=== PATIENT | male | born 1965 | race African-American/Black ===

== ENCOUNTER 2017-09-13 18:32 | Emergency (ER) | payer MEDICAID ==
[2017-09-13] MEDS: Ondansetron 4 MG/2 ML SDV IVPUSH ONE ×2 (19:00→20:35)
--- NOTE | 2017-09-13 19:10 | EDM.PDOC ---
ED HPI GENERAL MEDICAL PROBLEM - General Chief Complaint: General Stated Complaint: CHEST PAIN Time Seen by Provider: 09/13/17 18:35 Source of Information: Reports: Patient, Police History Limitations: Reports: No Limitations - History of Present Illness INITIAL COMMENTS - FREE TEXT/NARRATIVE: Pt was brought in by chief operations officer, as patient has been incarcerated by violating warrant. Pt was incarcerated . According to police, he has not been eating for past 2 days. According to patient he has been vomiting for past 2 days and not able to keep anything in the stomach. But since 12 noon today he has been having bloody vomitus. he did vomit twice here in the emergency room which is bloody and bilious and the gastro-occult is positive for blood.no abdominal pain or chills. Pt claims he has been having chest pain over the lower chest since today morning, pain is constant 8/10 with radiation into his neck and his throat hurts. No shortness of breath or wheezing.No fever or chills. c/o feeling weak.Pt's PCP is from [facility]. 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 Last time he smoked heroine was on . Location: Reports: Chest Quality: Reports: Ache Severity: Moderate Improves with: Reports: None Worsens with: Reports: None Associated Symptoms: Reports: Nausea/Vomiting. Denies: Confusion, Chest Pain, Cough, Diaphoresis, Fever/Chills, Headaches, Loss of Appetite, Rash, Seizure, Shortness of Breath, Syncope, Weakness - Related Data Allergies Allergy/AdvReac Type Severity Reaction Status Date / Time codeine Allergy Hives Verified 09/13/17 19:13 ketorolac tromethamine Allergy Hives Verified 09/13/17 19:13 [From Toradol] Home Meds: Home Meds metFORMIN [Glucophage] 500 mg PO BIDMEALS 09/13/17 [History] Past Medical History Endocrine/Metabolic History: Reports: Other (See Below) Other Endocrine/Metabolic History: Diabetes, Unspecified Social & Family History - Family History Family Medical History: Noncontributory ED ROS GENERAL - Review of Systems Review Of Systems: See Below Constitutional: Reports: Malaise, Weakness. Denies: Fever, Chills HEENT: Reports: Throat Pain. Denies: Rhinitis, Sinus Problem, Throat Swelling Respiratory: Reports: Cough, Sputum. Denies: Shortness of Breath, Wheezing Cardiovascular: Reports: Chest Pain, Lightheadedness Endocrine: Denies: Fatigue GI/Abdominal: Reports: Abdominal Pain, Hematemesis, Nausea, Vomiting. Denies: Constipation, Diarrhea : Denies: Urgency, Urinary Retention Musculoskeletal: Denies: Joint Pain, Joint Swelling Skin: Denies: Bruising, Pruritis ED EXAM, GENERAL - Physical Exam Exam: See Below Exam Limited By: No Limitations General Appearance: Alert, WD/WN, Anxious, Mild Distress Eye Exam: Bilateral Eye: EOMI, PERRL Ears: Normal External Exam, Normal Canal, Hearing Grossly Normal, Normal TMs Ear Exam: Bilateral Ear: Auricle Normal, Canal Normal, TM normal Nose: Normal Inspection, Normal Mucosa, No Blood Throat/Mouth: Normal Inspection, Normal Lips, Normal Teeth, Normal Gums, Normal Oropharynx, Normal Voice, No Airway Compromise Head: Atraumatic, Normocephalic Neck: Normal Inspection, Supple, Non-Tender, Full Range of Motion Respiratory/Chest: No Respiratory Distress, Lungs Clear, Normal Breath Sounds, No Accessory Muscle Use, Chest Non-Tender Cardiovascular: Normal Peripheral Pulses, Regular Rate, Rhythm, No Edema, No Gallop, No JVD, No Murmur, No Rub GI/Abdominal: Normal Bowel Sounds, Soft, No Organomegaly, No Distention, No Abnormal Bruit, Tender (epigastrium) Extremities: Normal Inspection, Normal Range of Motion, Non-Tender, Normal Capillary Refill, No Pedal Edema Neurological: Alert, Oriented Psychiatric: Normal Affect, Normal Mood EKG INTERPRETATION EKG Date: 09/13/17 Rhythm: NSR Ursa: Normal P-Wave: Present QRS: Normal ST-T: Normal QT: Normal EKG Interpretation Comments: Prolonged QT interval Course - Vital Signs Text/Narrative:: Pt has been c/o precardial chest pain since today morning and pain in his throat. His EKG is normal. He has been placed on Nasal cannula oxygen at 2 litres. Pt has vomited twice in the emergency room and the vomitus is bloody and gastroccult positive. he did receive S/l zofran 4mg and once IV access was available he did receive Zofran 40mg IV. Pt's vomiting has settled down some, He has epigastric tenderness possible from wretching. Pt did receive NS IV bolus of 500cc followed by 125cc/hr. Also He has received IV protonix 40mg . Apparently pt was resting and woke up with sudden onset on bloody vomitus around 8:30 Pm, and vomited about 150cc of watery bloody vomitus. He did receive another dose of Zofran 4mg IV. C/o his throat hurting, his posterior pharynx appears normal, might be from his wretching, hence did give him Lidocaine Viscus 15cc to help the the upper pharynx pain and discomfort. Apparently now I have his CT abdomen report, which does show thick walled distal esophagus indicative of esophagitis. With patient having bloody vomitus it is hard to say if he has erosive esophagitis causing this bleed or has torn the esophageal vein from his episodes of vomiting for past 2 days. Pt's urine drug screen is positive for Opiods, methamphetamine and marijuana. I did call [facility], and discuss patient's condition with Dr. Guerrero, Hospitalist plumbing contractor. He did recommend another 40mg of protonix IV and one dose of reglan 10mg IV. He does agree to accept patient. Pt has received second dose of protonix and reglan. I have discussed the transfer with patient and the lawnmower mechanic. Apparently for the transfer , the [facility] the [facility] Judge, has furloughed patient to go to [facility] for treatment. On patient's discharge the [facility] has to contact [facility] law enforcement office dispatch to cotton picker patient. the [facility] law enforcement dispatch number is [phone]. Pt is hemodynamically stable. On IV fluids. Pt will be transferred by [facility] to [facility] . Further care as per Cesar Velazquez. Last Recorded V/S: Last Vital Signs Temp 98.2 F 09/13/17 19:06 Pulse 107 H 09/13/17 19:06 Resp 26 H 09/13/17 19:06 BP 131/86 09/13/17 19:06 Pulse Ox 100 09/13/17 19:06 - Orders/Labs/Meds Labs: Laboratory Tests 09/13/17 09/13/17 09/13/17 Range/Units 18:07 19:10 19:10 WBC 6.1 (4.0-11.0) K/uL RBC 5.70 (4.50-6.50) M/uL Hgb 16.6 (13.0-18.0) g/dL Hct 45.5 (40.0-54.0) % MCV 80 (76-96) fL MCH 29.1 (27.0-32.0) pg MCHC 36.5 H (31.0-35.0) g/dL RDW 11.9 (11.0-16.0) % Plt Count 195 (150-400) K/uL MPV 11.1 H (6.0-10.0) fL Neut % (Auto) 74.9 H (45.0-70.0) % Lymph % (Auto) 19.3 L (20.0-40.0) % Foster % (Auto) 5.4 (3.0-10.0) % Eos % (Auto) 0.2 L (1.0-5.0) % Baso % (Auto) 0.2 (0.0-0.5) % Neut # (Auto) 4.57 (2.00-7.50) K/uL Lymph # (Auto) 1.18 L (1.50-4.00) K/uL Foster # (Auto) 0.33 (0.20-0.80) K/uL Eos # (Auto) 0.01 L (0.04-0.40) K/uL Baso # (Auto) 0.01 L (0.02-0.10) K/uL PT (9.0-11.5) sec INR (1.0-3.5) Sodium 135 L (136-145) mmol/L Potassium 4.0 (3.5-5.1) mmol/L Chloride 94 L (98-107) mmol/L Carbon Dioxide 30.6 (21.0-32.0) mmol/L Anion Gap 14.4 (5.0-15.0) mmol/L BUN 15 (8-26) mg/dL Creatinine 1.07 (0.70-1.30) mg/dL Est Cr Clr Drug Dosing 75.50 mL/min Estimated GFR (MDRD) > 60 (>60) MLS/MIN BUN/Creatinine Ratio 14.0 (6-25) Glucose 307 H (74-100) mg/dL POC Glucose 293 H (74-110) mg/dL Hemoglobin A1c (4.5-6.2) % Calcium 10.2 H (8.5-10.1) mg/dL Total Bilirubin 1.3 H (0.0-1.0) mg/dL AST 10 L (15-37) U/L ALT 25 (12-78) U/L Alkaline Phosphatase 94 (46-116) U/L Troponin I < 0.017 (0.000-0.060) ng/mL Total Protein 8.1 (6.4-8.2) g/dL Albumin 4.2 (3.4-5.0) g/dL Globulin 3.9 (2.2-4.2) g/dL Albumin/Globulin Ratio 1.1 (0.8-2.0) Amylase 92 (25-115) U/L Lipase 66 L (73-393) U/L Urine Color Urine Appearance (CLEAR) Urine pH (5.0-8.0) Ur Specific Nadeau (1.003-1.030) Urine Protein (NEGATIVE) mg/dL Urine Glucose (UA) (NEGATIVE) mg/dL Urine Ketones (NEGATIVE) mg/dL Urine Occult Blood (NEGATIVE) Urine Nitrite (NEGATIVE) Urine Bilirubin (NEGATIVE) Urine Urobilinogen (0.2-1.0) E.U./dL Ur Leukocyte Esterase (NEGATIVE) Urine RBC /HPF Urine WBC /HPF Urine Opiates Screen (NEGATIVE) Ur Oxycodone Screen (NEGATIVE) Urine Methadone Screen (NEGATIVE) U Acetaminophen Screen (NEGATIVE) Ur Barbiturates Screen (NEGATIVE) Ur Tricyclics Screen (NEGATIVE) Ur Phencyclidine Scrn (NEGATIVE) Ur Amphetamine Screen (NEGATIVE) U Methamphetamines Scrn (NEGATIVE) U Benzodiazepines Scrn (NEGATIVE) U Cocaine Metab Screen (NEGATIVE) U Marijuana (THC) Screen (NEGATIVE) 09/13/17 09/13/17 09/13/17 Range/Units 19:10 19:10 20:06 WBC (4.0-11.0) K/uL RBC (4.50-6.50) M/uL Hgb (13.0-18.0) g/dL Hct (40.0-54.0) % MCV (76-96) fL MCH (27.0-32.0) pg MCHC (31.0-35.0) g/dL RDW (11.0-16.0) % Plt Count (150-400) K/uL MPV (6.0-10.0) fL Neut % (Auto) (45.0-70.0) % Lymph % (Auto) (20.0-40.0) % Foster % (Auto) (3.0-10.0) % Eos % (Auto) (1.0-5.0) % Baso % (Auto) (0.0-0.5) % Neut # (Auto) (2.00-7.50) K/uL Lymph # (Auto) (1.50-4.00) K/uL Foster # (Auto) (0.20-0.80) K/uL Eos # (Auto) (0.04-0.40) K/uL Baso # (Auto) (0.02-0.10) K/uL PT 9.2 (9.0-11.5) sec INR 0.9 L (1.0-3.5) Sodium (136-145) mmol/L Potassium (3.5-5.1) mmol/L Chloride (98-107) mmol/L Carbon Dioxide (21.0-32.0) mmol/L Anion Gap (5.0-15.0) mmol/L BUN (8-26) mg/dL Creatinine (0.70-1.30) mg/dL Est Cr Clr Drug Dosing mL/min Estimated GFR (MDRD) (>60) MLS/MIN BUN/Creatinine Ratio (6-25) Glucose (74-100) mg/dL POC Glucose (74-110) mg/dL Hemoglobin A1c 8.7 H (4.5-6.2) % Calcium (8.5-10.1) mg/dL Total Bilirubin (0.0-1.0) mg/dL AST (15-37) U/L ALT (12-78) U/L Alkaline Phosphatase (46-116) U/L Troponin I (0.000-0.060) ng/mL Total Protein (6.4-8.2) g/dL Albumin (3.4-5.0) g/dL Globulin (2.2-4.2) g/dL Albumin/Globulin Ratio (0.8-2.0) Amylase (25-115) U/L Lipase (73-393) U/L Urine Color Yellow Urine Appearance Clear (CLEAR) Urine pH 6.0 (5.0-8.0) Ur Specific Nadeau 1.025 (1.003-1.030) Urine Protein 100 H (NEGATIVE) mg/dL Urine Glucose (UA) 500 H (NEGATIVE) mg/dL Urine Ketones >=160 H (NEGATIVE) mg/dL Urine Occult Blood Negative (NEGATIVE) Urine Nitrite Negative (NEGATIVE) Urine Bilirubin Small H (NEGATIVE) Urine Urobilinogen 0.2 (0.2-1.0) E.U./dL Ur Leukocyte Esterase Negative (NEGATIVE) Urine RBC Not seen /HPF Urine WBC Not seen /HPF Urine Opiates Screen (NEGATIVE) Ur Oxycodone Screen (NEGATIVE) Urine Methadone Screen (NEGATIVE) U Acetaminophen Screen (NEGATIVE) Ur Barbiturates Screen (NEGATIVE) Ur Tricyclics Screen (NEGATIVE) Ur Phencyclidine Scrn (NEGATIVE) Ur Amphetamine Screen (NEGATIVE) U Methamphetamines Scrn (NEGATIVE) U Benzodiazepines Scrn (NEGATIVE) U Cocaine Metab Screen (NEGATIVE) U Marijuana (THC) Screen (NEGATIVE) 09/13/17 Range/Units 20:07 WBC (4.0-11.0) K/uL RBC (4.50-6.50) M/uL Hgb (13.0-18.0) g/dL Hct (40.0-54.0) % MCV (76-96) fL MCH (27.0-32.0) pg MCHC (31.0-35.0) g/dL RDW (11.0-16.0) % Plt Count (150-400) K/uL MPV (6.0-10.0) fL Neut % (Auto) (45.0-70.0) % Lymph % (Auto) (20.0-40.0) % Foster % (Auto) (3.0-10.0) % Eos % (Auto) (1.0-5.0) % Baso % (Auto) (0.0-0.5) % Neut # (Auto) (2.00-7.50) K/uL Lymph # (Auto) (1.50-4.00) K/uL Foster # (Auto) (0.20-0.80) K/uL Eos # (Auto) (0.04-0.40) K/uL Baso # (Auto) (0.02-0.10) K/uL PT (9.0-11.5) sec INR (1.0-3.5) Sodium (136-145) mmol/L Potassium (3.5-5.1) mmol/L Chloride (98-107) mmol/L Carbon Dioxide (21.0-32.0) mmol/L Anion Gap (5.0-15.0) mmol/L BUN (8-26) mg/dL Creatinine (0.70-1.30) mg/dL Est Cr Clr Drug Dosing mL/min Estimated GFR (MDRD) (>60) MLS/MIN BUN/Creatinine Ratio (6-25) Glucose (74-100) mg/dL POC Glucose (74-110) mg/dL Hemoglobin A1c (4.5-6.2) % Calcium (8.5-10.1) mg/dL Total Bilirubin (0.0-1.0) mg/dL AST (15-37) U/L ALT (12-78) U/L Alkaline Phosphatase (46-116) U/L Troponin I (0.000-0.060) ng/mL Total Protein (6.4-8.2) g/dL Albumin (3.4-5.0) g/dL Globulin (2.2-4.2) g/dL Albumin/Globulin Ratio (0.8-2.0) Amylase (25-115) U/L Lipase (73-393) U/L Urine Color Urine Appearance (CLEAR) Urine pH (5.0-8.0) Ur Specific Nadeau (1.003-1.030) Urine Protein (NEGATIVE) mg/dL Urine Glucose (UA) (NEGATIVE) mg/dL Urine Ketones (NEGATIVE) mg/dL Urine Occult Blood (NEGATIVE) Urine Nitrite (NEGATIVE) Urine Bilirubin (NEGATIVE) Urine Urobilinogen (0.2-1.0) E.U./dL Ur Leukocyte Esterase (NEGATIVE) Urine RBC /HPF Urine WBC /HPF Urine Opiates Screen Positive H (NEGATIVE) Ur Oxycodone Screen Negative (NEGATIVE) Urine Methadone Screen Negative (NEGATIVE) U Acetaminophen Screen Negative (NEGATIVE) Ur Barbiturates Screen Negative (NEGATIVE) Ur Tricyclics Screen Negative (NEGATIVE) Ur Phencyclidine Scrn Negative (NEGATIVE) Ur Amphetamine Screen Negative (NEGATIVE) U Methamphetamines Scrn Positive H (NEGATIVE) U Benzodiazepines Scrn Negative (NEGATIVE) U Cocaine Metab Screen Negative (NEGATIVE) U Marijuana (THC) Screen Positive H (NEGATIVE) Meds: Medications Discontinued Medications Generic Name Dose Route Start Last Admin Trade Name Freq PRN Reason Stop Dose Admin Sodium Chloride 500 mls @ 500 mls/hr 09/13/17 19:22 09/13/17 19:35 Normal Saline IV 09/13/17 20:21 500 mls/hr .BOLUS ONE Administration Sodium Chloride 1,000 mls @ 125 mls/hr 09/13/17 19:30 09/13/17 19:35 Normal Saline IV 125 mls/hr ASDIRECTED DANIELLE Administration Pantoprazole Sodium 40 mg/ 100 mls @ 10 mls/hr 09/13/17 19:45 09/13/17 21:10 Sodium Chloride IV 10 mls/hr .BOLUS DANIELLE Administration Pantoprazole Sodium 40 mg/ 100 mls @ 200 mls/hr 09/13/17 20:56 Sodium Chloride IV 09/13/17 21:25 .BOLUS ONE Lidocaine HCl 15 ml 09/13/17 20:43 09/13/17 21:35 Xylocaine 2% Viscous PO 15 ml ASDIRECTED PRN Administration throat irritation Metoclopramide HCl 10 mg 09/13/17 21:00 09/13/17 21:10 Reglan IV 09/13/17 21:01 10 mg ONETIME ONE Administration Ondansetron HCl 4 mg 09/13/17 18:59 09/13/17 20:35 Zofran IVPUSH 09/13/17 19:00 4 mg ONETIME ONE Administration Ondansetron HCl 4 mg 09/13/17 19:17 09/13/17 19:19 Zofran Odt PO 09/13/17 19:18 4 mg ONETIME ONE Administration Pantoprazole Sodium 40 mg 09/13/17 19:23 Protonix Iv IVPUSH 09/13/17 19:24 ONETIME ONE Departure - Departure Disposition: DC/Tfer to Acute Hospital 02 Condition: Fair Clinical Impression: Acute upper gastrointestinal bleeding, Diabetes, Drug abuse - Discharge Information Referrals: PCP,None [Primary Care Provider] - Forms: ED Department Discharge - Problem List & Annotations (1) Acute upper gastrointestinal bleeding SNOMED Code(s): 19749050 Code(s): K92.2 - GASTROINTESTINAL HEMORRHAGE, UNSPECIFIED Status: Acute - Problem List Review Problem List Initiated/Reviewed/Updated: Yes - Assessment/Plan Assessment:: Acute Upper GI bleeding Diabetes Multiple drug abuse Plan: Pt has been c/o precardial chest pain since today morning and pain in his throat. His EKG is normal. He has been placed on Nasal cannula oxygen at 2 litres. Pt has vomited twice in the emergency room and the vomitus is bloody and gastroccult positive. he did receive S/l zofran 4mg and once IV access was available he did receive Zofran 40mg IV. Pt's vomiting has settled down some, He has epigastric tenderness possible from wretching. Pt did receive NS IV bolus of 500cc followed by 125cc/hr. Also He has received IV protonix 40mg . Apparently pt was resting and woke up with sudden onset on bloody vomitus around 8:30 Pm, and vomited about 150cc of watery bloody vomitus. He did receive another dose of Zofran 4mg IV. C/o his throat hurting, his posterior pharynx appears normal, might be from his wretching, hence did give him Lidocaine Viscus 15cc to help the the upper pharynx pain and discomfort. Apparently now I have his CT abdomen report, which does show thick walled distal esophagus indicative of esophagitis. With patient having bloody vomitus it is hard to say if he has erosive esophagitis causing this bleed or has torn the esophageal vein from his episodes of vomiting for past 2 days. Pt's urine drug screen is positive for Opiods, methamphetamine and marijuana. I did call [facility], and discuss patient's condition with Dr. Guerrero, Hospitalist plumbing contractor. He did recommend another 40mg of protonix IV and one dose of reglan 10mg IV. He does agree to accept patient. Pt has received second dose of protonix and reglan. I have discussed the transfer with patient and the lawnmower mechanic. Apparently for the transfer , the [facility], has furloughed patient to go to [facility] for treatment. On patient's discharge the [facility] has to contact [facility] law enforcement office dispatch to cotton picker patient. the [facility] law enforcement dispatch number is [phone]. Pt is hemodynamically stable. On IV fluids. Pt will be transferred by [facility] road ambulance to [facility] . Further care as per Cesar Velazquez.
[2017-09-13] MEDS ORDERED: Ondansetron 4 MG Tab.DIS PO ONE (19:17)
[2017-09-13] MEDS ORDERED: Sodium Chloride 0.9% 500 ML IV ONE (19:22)
[2017-09-13] MEDS ORDERED: Pantoprazole 40 MG Vial IVPUSH ONE (19:23)
[2017-09-13] MEDS ORDERED: Sodium Chloride 0.9% 1,000 ML IV SCH (19:30)
[2017-09-13] MEDS: Pantoprazole 40 MG in Sodium Chloride 0.9% 100 ML IV SCH ×2 (20:40→21:10)
[2017-09-13] MEDS ORDERED: Lidocaine 2% Viscous Solution 15 ML Cup PO PRN (20:43)
[2017-09-13] MEDS ORDERED: Pantoprazole 40 MG in Sodium Chloride 0.9% 100 ML IV ONE (20:56)
[2017-09-13] MEDS ORDERED: Metoclopramide 10 MG/2 ML SDV IV ONE (21:00)
--- NOTE | 2017-09-15 02:36 | CR ---
ENHANCED ABDOMEN AND PELVIC CT, 09/13/17 Multislice acquisition through the abdomen and pelvis with IV, but without oral contrast was performed. Comparison is made to a prior exam dated 05/30/12. There are minimal atelectatic changes to the dependent portion of the left lower lung. The lung bases are otherwise clear. There is diffuse fatty infiltration of the liver with increased fatty infiltration adjacent the falciform ligament. No other hepatic abnormalities. The gallbladder is absent and there are surgical clips in the gallbladder fossa. No biliary duct dilatation. The spleen appears normal. The pancreas appears normal. The right and left adrenals appear normal. The right and left kidneys appear normal and enhance symmetrically. No hydronephrosis or hydroureter. The bladder is partially fluid filled and appears normal. The prostate is enlarged. No evidence of appendicitis. No free air. No free fluid. No dilated loops of bowel. No adenopathy. No aortic aneurysm or dissection. There is a small hiatal hernia. There is mural thickening within the distal esophagus. Esophagitis should be considered. There is a small umbilical hernia containing fat. [id number] [facility]
== END 2017-09-13 22:50 ==
LOC: LB.ED 18:32
DX: K92.2 Gastrointestinal hemorrhage, unspecified (principal); E11.9 Type 2 diabetes mellitus without complications; F19.10 Other psychoactive substance abuse, uncomplicated; Z88.5 Allergy status to narcotic agent; Z88.8 Allergy status to other drugs, medicaments and biological substances; Z79.84 Long term (current) use of oral hypoglycemic drugs
CPT/HCPCS: 36415; 74177; 80053; 80307; 81001; 82150; 82962; 83036; 83690; 84484; 85025; 85610; 93005; 96361; 96374; 96375; 99285; A9270; C9113; J2405; J2765; J7030; J7040

== ENCOUNTER 2021-08-20 16:48 | Emergency (ER) | payer MEDICAID ==
[2021-08-20] MEDS: HYDROmorphone 2 MG/ML SDV IVPUSH ONE (17:37)
[2021-08-20] MEDS: HYDROmorphone 2 MG/ML SDV ONE (17:40)
[2021-08-20] MEDS: Phenazopyridine 100 MG Tab ONE (18:19)
[2021-08-20] MEDS: Phenazopyridine 100 MG Tab PO ONE (18:20)
[2021-08-20] MEDS ORDERED: methylPREDNISolone Sodium Succinate 125 MG/2 ML SDV IVPUSH ONE (18:58)
[2021-08-20] MEDS: methylPREDNISolone Sodium Succinate 125 MG/2 ML SDV ONE (18:59)
[2021-08-20] MEDS ORDERED: Phenazopyridine 100 MG Tab ONE (19:30)
[2021-08-20] MEDS ORDERED: predniSONE 10 MG Tab ONE (19:30)
--- NOTE | 2021-08-20 19:48 | EDM.PDOC ---
ED HPI GENERAL MEDICAL PROBLEM - General Chief Complaint: Genitourinary Problem Stated Complaint: IN PAIN Time Seen by Provider: 08/20/21 17:00 - History of Present Illness INITIAL COMMENTS - FREE TEXT/NARRATIVE: Pt comes to the ER with C/O penile burning and not being able to void much, only small amounts or dribbling. He tells us he has prostate cancer initially, but then states he was seen by his PCP in [place] and his PSA is high at 170's. He is scheduled to see Urology in 2 days for further workup. He denies any hematuria or teste pain. He has not had any recent injuries to the effected area. Bilateral Pain Score (Numeric/FACES): 8 - Related Data Allergies Allergy/AdvReac Type Severity Reaction Status Date / Time codeine Allergy Hives Verified 08/20/21 16:55 ketorolac tromethamine Allergy Hives Verified 08/20/21 16:55 [From Toradol] Home Meds: Home Meds metFORMIN [Glucophage] 500 mg PO BIDMEALS 09/13/17 [History] Mirtazapine [Remeron] 45 mg PO DAILY PRN 08/20/21 [History] Venlafaxine [Effexor] 187 mg PO DAILY 08/20/21 [History] atoMOXetine HCl [Strattera] 80 mg PO DAILY 08/20/21 [History] hydrOXYzine HCL [Hydroxyzine HCl] 100 mg PO ASDIRECTED PRN 08/20/21 [History] Past Medical History Psychiatric History: Reports: Anxiety Endocrine/Metabolic History: Reports: Other (See Below) Other Endocrine/Metabolic History: Diabetes, Unspecified Social & Family History - Family History Family Medical History: No Pertinent Family History - Recreational Drug Use Recreational Drug Use: No ED ROS GENERAL - Review of Systems Review Of Systems: Comprehensive ROS is negative, except as noted in HPI. : Reports: Dysuria ED EXAM, RENAL/ - Physical Exam Exam: See Below Text/Narrative:: He keeps moaning and saying how bad the pain is. Bladder scan reveals no measurable urine. He repeated that he hasn't been able to pass his urine. We then cathed the pt with minimal julia 20 ml return of cloudy blood tinged urine. After this he states that the pain is much worse, he is panting and moaning more. Abd is soft and non tender to touch. General Appearance: Anxious, Moderate Distress Course - Vital Signs Last Recorded V/S: Last Vital Signs Temp 97.6 F 08/20/21 17:07 Pulse 109 H 08/20/21 17:07 Resp 18 08/20/21 17:07 BP 145/96 H 08/20/21 17:07 Pulse Ox 94 L 08/20/21 17:07 - Orders/Labs/Meds Orders: Active Orders 24 hr Category Date Time Status Abdomen Pelvis wo Cont [CT] Stat Exams 08/20/21 17:29 Ordered Labs: Laboratory Tests 08/20/21 08/20/21 08/20/21 Range/Units 17:29 17:29 17:40 WBC 5.2 (4.0-11.0) K/uL RBC 4.93 (4.50-6.50) M/uL Hgb 14.3 (13.0-18.0) g/dL Hct 40.5 (40.0-54.0) % MCV 82 (76-96) fL MCH 29.0 (27.0-32.0) pg MCHC 35.3 H (31.0-35.0) g/dL RDW 12.4 (11.0-16.0) % Plt Count 186 (150-400) K/uL MPV 10.4 H (6.0-10.0) fL Neut % (Auto) 56.4 (45.0-70.0) % Lymph % (Auto) 30.4 (20.0-40.0) % [place] % (Auto) 12.2 H (3.0-10.0) % Eos % (Auto) 0.8 L (1.0-5.0) % Baso % (Auto) 0.2 (0.0-0.5) % Neut # (Auto) 2.95 (2.00-7.50) K/uL Lymph # (Auto) 1.59 (1.50-4.00) K/uL [place] # (Auto) 0.64 (0.20-0.80) K/uL Eos # (Auto) 0.04 (0.04-0.40) K/uL Baso # (Auto) 0.01 L (0.02-0.10) K/uL Sodium (136-145) mmol/L Potassium (3.5-5.1) mmol/L Chloride (98-107) mmol/L Carbon Dioxide (21.0-32.0) mmol/L Anion Gap (5.0-15.0) mmol/L BUN (8-26) mg/dL Creatinine (0.70-1.30) mg/dL Est Cr Clr Drug Dosing mL/min Estimated GFR (MDRD) (>60) MLS/MIN BUN/Creatinine Ratio (6-25) Glucose (74-100) mg/dL Calcium (8.5-10.1) mg/dL Total Bilirubin (0.0-1.0) mg/dL AST (15-37) U/L ALT (12-78) U/L Alkaline Phosphatase (46-116) U/L Total Protein (6.4-8.2) g/dL Albumin (3.4-5.0) g/dL Globulin (2.2-4.2) g/dL Albumin/Globulin Ratio (0.8-2.0) Urine Color Red Urine Appearance Turbid (CLEAR) Urine pH 6.0 (5.0-8.0) Ur Specific [place] 1.030 (1.003-1.030) Urine Protein 100 H (NEGATIVE) mg/dL Urine Glucose (UA) Negative (NEGATIVE) mg/dL Urine Ketones 80 H (NEGATIVE) mg/dL Urine Occult Blood Large (NEGATIVE) Urine Nitrite Negative (NEGATIVE) Urine Bilirubin Negative (NEGATIVE) Urine Urobilinogen 0.2 (0.2-1.0) E.U./dL Ur Leukocyte Esterase Negative (NEGATIVE) Urine RBC Semi-packed H /HPF Urine WBC 0-5 H /HPF Ur Squamous Epith Cells Occasional /HPF Urine Opiates Screen Negative (NEGATIVE) Ur Oxycodone Screen Negative (NEGATIVE) Urine Methadone Screen Negative (NEGATIVE) Ur Barbiturates Screen Negative (NEGATIVE) Ur Tricyclics Screen Negative (NEGATIVE) Ur Phencyclidine Scrn Negative (NEGATIVE) Ur Amphetamine Screen Positive H (NEGATIVE) U Methamphetamines Scrn Positive H (NEGATIVE) Urine MDMA Screen Positive H (NEGATIVE) U Benzodiazepines Scrn Negative (NEGATIVE) U Cocaine Metab Screen Negative (NEGATIVE) U Marijuana (THC) Screen Negative (NEGATIVE) 08/20/21 Range/Units 17:40 WBC (4.0-11.0) K/uL RBC (4.50-6.50) M/uL Hgb (13.0-18.0) g/dL Hct (40.0-54.0) % MCV (76-96) fL MCH (27.0-32.0) pg MCHC (31.0-35.0) g/dL RDW (11.0-16.0) % Plt Count (150-400) K/uL MPV (6.0-10.0) fL Neut % (Auto) (45.0-70.0) % Lymph % (Auto) (20.0-40.0) % [place] % (Auto) (3.0-10.0) % Eos % (Auto) (1.0-5.0) % Baso % (Auto) (0.0-0.5) % Neut # (Auto) (2.00-7.50) K/uL Lymph # (Auto) (1.50-4.00) K/uL [place] # (Auto) (0.20-0.80) K/uL Eos # (Auto) (0.04-0.40) K/uL Baso # (Auto) (0.02-0.10) K/uL Sodium 137 (136-145) mmol/L Potassium 4.0 (3.5-5.1) mmol/L Chloride 102 (98-107) mmol/L Carbon Dioxide 22.8 D (21.0-32.0) mmol/L Anion Gap 16.2 H (5.0-15.0) mmol/L BUN 19 D (8-26) mg/dL Creatinine 1.15 (0.70-1.30) mg/dL Est Cr Clr Drug Dosing 67.06 mL/min Estimated GFR (MDRD) > 60 (>60) MLS/MIN BUN/Creatinine Ratio 16.5 (6-25) Glucose 230 H (74-100) mg/dL Calcium 8.5 (8.5-10.1) mg/dL Total Bilirubin 1.7 H D (0.0-1.0) mg/dL AST 70 H (15-37) U/L ALT 72 (12-78) U/L Alkaline Phosphatase 83 (46-116) U/L Total Protein 7.3 (6.4-8.2) g/dL Albumin 3.9 (3.4-5.0) g/dL Globulin 3.4 (2.2-4.2) g/dL Albumin/Globulin Ratio 1.1 (0.8-2.0) Urine Color Urine Appearance (CLEAR) Urine pH (5.0-8.0) Ur Specific [place] (1.003-1.030) Urine Protein (NEGATIVE) mg/dL Urine Glucose (UA) (NEGATIVE) mg/dL Urine Ketones (NEGATIVE) mg/dL Urine Occult Blood (NEGATIVE) Urine Nitrite (NEGATIVE) Urine Bilirubin (NEGATIVE) Urine Urobilinogen (0.2-1.0) E.U./dL Ur Leukocyte Esterase (NEGATIVE) Urine RBC /HPF Urine WBC /HPF Ur Squamous Epith Cells /HPF Urine Opiates Screen (NEGATIVE) Ur Oxycodone Screen (NEGATIVE) Urine Methadone Screen (NEGATIVE) Ur Barbiturates Screen (NEGATIVE) Ur Tricyclics Screen (NEGATIVE) Ur Phencyclidine Scrn (NEGATIVE) Ur Amphetamine Screen (NEGATIVE) U Methamphetamines Scrn (NEGATIVE) Urine MDMA Screen (NEGATIVE) U Benzodiazepines Scrn (NEGATIVE) U Cocaine Metab Screen (NEGATIVE) U Marijuana (THC) Screen (NEGATIVE) Meds: Medications Discontinued Medications Generic Name Dose Route Start Last Admin Trade Name Darvinq PRN Reason Stop Dose Admin Hydromorphone HCl 1 mg 08/20/21 17:28 08/20/21 17:37 Hydromorphone 2 Mg/Ml Sdv IVPUSH 08/20/21 17:29 1 mg ONETIME ONE Administration Hydromorphone HCl Confirm 08/20/21 17:36 08/20/21 17:40 Hydromorphone 2 Mg/Ml Sdv Administered 08/20/21 17:37 Not Given Dose 2 mg .ROUTE .STK-MED ONE Methylprednisolone Sodium Succinate Confirm 08/20/21 19:03 08/20/21 18:59 Methylprednisolone Sodium Succinate 125 Mg/2 Ml Sdv Administered 08/20/21 19:04 125 mg Dose Administration 125 mg .ROUTE .STK-MED ONE Methylprednisolone Sodium Succinate 125 mg 08/20/21 18:58 Methylprednisolone Sodium Succinate 125 Mg/2 Ml Sdv IVPUSH 08/20/21 18:59 ONETIME ONE Phenazopyridine HCl Confirm 08/20/21 18:18 08/20/21 18:19 Phenazopyridine 100 Mg Tab Administered 08/20/21 18:19 Not Given Dose 200 mg .ROUTE .STK-MED ONE Phenazopyridine HCl 200 mg 08/20/21 18:19 08/20/21 18:20 Phenazopyridine 100 Mg Tab PO 08/20/21 18:20 200 mg ONETIME ONE Administration - Re-Assessments/Exams Free Text/Narrative Re-Assessment/Exam: 08/20/21 19:48 Dilaudid 1 mg was given IV. He tells us this didn't help his pain at all. We then gave him Pyridium 200 mg. This seemed to help a little. Labs show multiple positive results on his Tox screen. CT Abd and pelvis are negative for any acute findings. We then gave Solu Medrol 125 IV. This combination seemed to help and he rates his pain at 2-4 now. He is still panting some and I asked him why. He told ne he is not sure, but he quit doing it and calmed down. He admits to having anxiety issues. While here he made many phone calls to different people, while in severe pain according to him. I will discharge him with Pyridium and oral prednisone for a couple days. He is to push fluids. And follow up with Urology in 2 days as scheduled. The pt agree's with the tx plan and has no further questions. Departure - Departure Time of Disposition: 19:50 Disposition: Home, Self-Care 01 Condition: Good Clinical Impression: Urethritis - Discharge Information *PRESCRIPTION DRUG MONITORING PROGRAM REVIEWED*: Yes *COPY OF PRESCRIPTION DRUG MONITORING REPORT IN PATIENT LOYD: Yes Instructions: Benign Prostatic Hyperplasia Referrals: PCP,None [Primary Care Provider] - Forms: ED Department Discharge Additional Instructions: Takle Prednisone 2 tabs every 24 hours until gone. [place] Phenazopyridine 100mg one tab three times a day until gone. Sepsis Event Note (ED) - Evaluation Sepsis Screening Result: No Definite Risk - Focused Exam Vital Signs: Vital Signs Temp Pulse Resp BP Pulse Ox 08/20/21 17:07 97.6 F 109 H 18 145/96 H 94 L - My Orders Last 24 Hours: My Active Orders 08/20/21 17:29 Abdomen Pelvis wo Cont [CT] Stat - Assessment/Plan Last 24 Hours: My Active Orders 08/20/21 17:29 Abdomen Pelvis wo Cont [CT] Stat
--- NOTE | 2021-08-21 07:27 | CT ---
Date of Service: 08/20/21 Clinical Data: Urinary retention - pelvic pain UNENHANCED ABDOMEN AND PELVIC CT: Multislice acquisition through the abdomen and pelvis without IV or oral contrast was performed. Comparison is made to a prior exam dated 09/13/17. There are mild atelectatic changed in the dependent portion of both lower lungs. There is a linear density in the left lung base consistent with linear atelectasis or fibrosis. The lung bases are otherwise clear. The heart size is normal. The liver is normal size. There is decreased attenuation of the liver adjacent to the falciform ligament consistent with focal fatty infiltration. No other focal hepatic lesions. The patient is status post cholecystectomy. There is diffuse gastric wall thickening. This is probably related to nondistention. Gastritis or an infiltrating process should be considered. There is also mild marrow thickening within distal esophagus. Consider esophagitis. The spleen appears normal. Pancreas is mildly atrophic, otherwise unremarkable. The right and left adrenals appear normal. The right and left kidneys appear normal. No nephrocalcinosis or nephrolithiasis. No hydronephrosis or hydroureter. Bladder is decompressed. The bladder wall appears thickened. Consider cystitis. The prostate is enlarged. The appendix is not dilated. No evidence of appendicitis. There is diverticulosis of the descending and sigmoid colon. No evidence of diverticulitis. No free air. No free fluid. No dilated loops of bowel. No adenopathy. No aortic aneurysm. There is a fat and fluid-containing right inguinal hernia. There is degenerative disk disease at multiple levels in the lower thoracic and lumbar spine. No other significant findings. [id number] MTDD
== END 2021-08-20 19:41 | disposition home or self-care (01) ==
LOC: LB.ED 16:48
DX: N34.2 Other urethritis (principal); Z88.5 Allergy status to narcotic agent; Z88.6 Allergy status to analgesic agent
CPT/HCPCS: 36415; 51702; 74176; 80053; 80307; 81001; 85025; 96374; 96375; 99284; A9270; J1170; J2930; J7512